=== PATIENT | male | born 1975 | race Caucasian/White ===

== ENCOUNTER → 2023-12-05 | Outpatient (CLI) | payer BC | LOC: RAD 13:56 | DX: M47.816 Spondylosis without myelopathy or radiculopathy, lumbar region (principal); Z91.81 History of falling ==

== ENCOUNTER → 2023-12-16 | Outpatient (CLI) | payer BC | LOC: RAD 07:19 | DX: M47.26 Other spondylosis with radiculopathy, lumbar region (principal); M48.02 Spinal stenosis, cervical region; M51.369 Other intervertebral disc degeneration, lumbar region without mention of lumbar back pain or lower extremity pain; M89.30 Hypertrophy of bone, unspecified site ==